=== PATIENT | male | born 2005 | race Two or more races ===

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

== ENCOUNTER → 2025-01-29 | Outpatient (BNVA) | payer MEDICAID, SELFPAY | END | disposition home or self-care (01) | PROVIDERS: PCP Nurse Practitioner Family; Referring Provider Nurse Practitioner Family; Visit Provider Nurse Practitioner Family | DX: R07.89 Other chest pain (principal); E10.65 Type 1 diabetes mellitus with hyperglycemia | CPT/HCPCS: 93005; 99214 ==

== ENCOUNTER → 2025-02-04 | Outpatient (BNVA) | payer MEDICAID, SELFPAY | END | disposition home or self-care (01) | PROVIDERS: PCP Nurse Practitioner Family; Referring Provider Nurse Practitioner Family; Visit Provider Nurse Practitioner Family | DX: Z00.01 Encounter for general adult medical examination with abnormal findings (principal); M41.9 Scoliosis, unspecified; E10.65 Type 1 diabetes mellitus with hyperglycemia; Z71.85 Encounter for immunization safety counseling; Z13.220 Encounter for screening for lipoid disorders; Z11.3 Encounter for screening for infections with a predominantly sexual mode of transmission; L70.0 Acne vulgaris | CPT/HCPCS: 99173; 99215 ==

== ENCOUNTER → 2025-02-10 | Outpatient (CLI) | payer MEDICAID, SELFPAY ==
--- NOTE | 2025-02-10 09:06 | XR_ITS ---
Examination: Scoliosis survey 2, views. Technique: AP standing thoracic, AP standing lumbar spine, two views. Exam date and time: Feb 10 2025 0913 hours INDICATIONS: Clinical diagnosis scoliosis Findings: Thoracic levoscoliosis 4 degrees Lumbar dextroscoliosis 5 degrees Spina bifida S1 IMPRESSION: Scoliosis as above
== END | disposition home or self-care (01) ==
LOC: CDIM 08:55
PROVIDERS: PCP Nurse Practitioner Family; Referring Provider Nurse Practitioner Family; Visit Provider Nurse Practitioner Family
DX: M41.84 Other forms of scoliosis, thoracic region (principal); M41.86 Other forms of scoliosis, lumbar region
CPT/HCPCS: 72082

== ENCOUNTER → 2025-02-25 | Outpatient (BNVA) | payer MEDICAID, SELFPAY | END | disposition home or self-care (01) | PROVIDERS: PCP Nurse Practitioner Family; Referring Provider Nurse Practitioner Family; Visit Provider Nurse Practitioner Family | DX: Z71.2 Person consulting for explanation of examination or test findings (principal); E10.65 Type 1 diabetes mellitus with hyperglycemia; M41.9 Scoliosis, unspecified; D75.839 Thrombocytosis, unspecified | CPT/HCPCS: 99212; G0463 ==